=== PATIENT | male | born 1990 | race Caucasian/White ===

== ENCOUNTER → 2021-09-07 | Outpatient (CLI) | payer OTHER | END | disposition home or self-care (01) | LOC: COVID19 15:19 | PROVIDERS: ATTEND Internal Medicine | DX: Z11.52 Encounter for screening for COVID-19 (principal) ==

== ENCOUNTER 2021-11-24 15:02 | Emergency (ER) | payer OTHER ==
[~2021-11-24] VITALS: Ht 177.8 cm; Wt 111.1 kg
[2021-11-24] MEDS ORDERED: METHOCARBAMOL500 M1 PO (16:39)
[2021-11-24] MEDS ORDERED: PREDNISONE20 M1 PO (16:39)
[2021-11-24 17:23] LABS: BILIRUBIN Negative (Negative); BLOOD Negative (Negative); CLARITY Clear (Clear); COLOR Yellow (Yellow); GLUCOSE Negative (Negative); KETONE Negative (Negative); LEUKO ESTERASE Negative (Negative); NITRITE Negative (Negative); UROBILINOGEN 0.2 E.U./dl (0.0-1.0)
[2021-11-24 18:01] LABS: BACTERIA TRACE; WBC 0-2 wbc/hpf (0-5)
== END 2021-11-24 17:55 | disposition home or self-care (01) ==
LOC: ED 15:02
PROVIDERS: Physician Assistant
DX: S13.9XXA Sprain of joints and ligaments of unspecified parts of neck, initial encounter (principal); S33.5XXA Sprain of ligaments of lumbar spine, initial encounter; V29.59XA Motorcycle passenger injured in collision with other motor vehicles in traffic accident, initial encounter; Y93.89 Activity, other specified; Y92.89 Other specified places as the place of occurrence of the external cause; Y99.8 Other external cause status

== ENCOUNTER 2023-02-15 05:05 | Emergency (ER) | payer OTHER ==
[~2023-02-15] VITALS: Ht 177.8 cm; Wt 106.6 kg
[~2023-02-15 05:05] MED LIST: METHOCARBAMOL500 M1 PO; PREDNISONE20 M1 PO
[2023-02-15] MEDS ORDERED: HYDROCODONE-AC1 EAC1 PO (05:38)
== END 2023-02-15 06:02 | disposition home or self-care (01) ==
LOC: ED 05:05
DX: S83.92XA Sprain of unspecified site of left knee, initial encounter (principal); X50.1XXA Overexertion from prolonged static or awkward postures, initial encounter; Y93.89 Activity, other specified; Y92.89 Other specified places as the place of occurrence of the external cause; Y99.0 Civilian activity done for income or pay

== ENCOUNTER → 2025-07-13 | Outpatient (CLI) | payer OTHER ==
[~2025-07-13] MED LIST changes: +HYDROCODONE-AC1 EAC1 PO
[2025-07-13 11:06] LABS: BASO # 0.0 10*3/uL (0.0-0.1); BASO % 0.3 % (0.0-1.0); EOS # 0.4 10*3/uL (0.0-0.4); EOS % 4.6 % (1.0-4.0); MEAN CELL VOLUME 89.4 fl (80.0-94.0); MEAN CORPUSCULAR HGB 30.3 pg (27.0-31.0); MEAN PLATELET VOLUME 9.4 fl (9.6-12.3); MONO # 0.7 10*3/uL (0.1-1.0); MONO % 7.7 % (3.0-9.0); NEUT # 5.0 10*3/uL (2.3-7.9); NEUT % 57.5 % (47.0-73.0); NUCLEATED RED BLOOD CELL 0.0 % (0.0-0.0); NUCLEATED RED BLOOD CELL 0.0 10*3/uL (0.0-0.0); PLATELET COUNT AUTOMATED 243 10*3/uL (130-400); RED CELL DISTRI WIDTH 13.2 % (0-14.5)
[2025-07-13 12:04] LABS: BUN 6 mg/dl (9-23); SGPT/ALT 98 U/L (5-49)
== END ==
LOC: LAB 10:44
PROVIDERS: ATTEND Orthopaedic Surgery
DX: I10 Essential (primary) hypertension (principal); R35.0 Frequency of micturition